=== PATIENT | female | born 1995 | race Caucasian/White ===

== ENCOUNTER 2016-07-12 02:25 | Inpatient (IN) | payer MEDICAID ==
[2016-07-12] VITALS (52 sets, daily range): BP systolic 93–158; BP diastolic 46–76
[~2016-07-12] VITALS: Ht 144.8 cm; Wt 63.0 kg
--- OUTSIDE RECORDS SUMMARY | 2016-07-12 02:29 | XMS REPORT | Continuity of Care Document ---
Author Author [facility] Organization [facility] Address Unknown Phone Unavailable Allergies Medications Problems Procedures Results Encounters ACCT No. Visit Date/Time Discharge Status Pt. Type Provider Facility Loc./Unit Complaint [id number] 12/23/2014 21:54:09 12/23/2014 23: 59:59 [facility] Outpatient JULITO BUCKLEY [id number] 03/08/2014 11:07:24 03/08/2014 23: 59:59 [facility] Outpatient JULITO BUCKLEY [id number] 11/22/2013 13:23:57 11/22/2013 23: 59:59 [facility] Outpatient JULITO BUCKLEY
[2016-07-12] MEDS ORDERED: PREN1TAB71 PO (03:47)
[2016-07-12 05:11] LABS: BASOPHILS % (AUTO) 0 % (0-10); EOSINOPHILS % (AUTO) 0 % (0-10); LYMPHOCYTES # (AUTO) 1.4 X 10^3 (1.0-4.0); LYMPHOCYTES % (AUTO) 14 % (12-44); MEAN CORPUSCULAR HEMOGLOBIN 32 PG (25-34); MEAN CORPUSCULAR HGB CONC 34 G/DL (32-36); MEAN CORPUSCULAR VOLUME 94 FL (80-99); MEAN PLATELET VOLUME 9.3 FL (7.4-10.4); MONOCYTES # (AUTO) 0.7 X 10^3 (0.0-1.0); MONOCYTES % (AUTO) 7 % (0-12); NEUTROPHILS # (AUTO) 7.5 X 10^3 (1.8-7.8); NEUTROPHILS % (AUTO) 78 % (42-75); PLATELET COUNT 351 10^3/uL (130-400); RED BLOOD COUNT 3.74 10^6/uL (4.35-5.85); RED CELL DISTRIBUTION WIDTH 13.3 % (10.0-14.5); WHITE BLOOD COUNT 9.6 10^3/uL (4.3-11.0)
[2016-07-12 05:28] LABS: ALANINE AMINOTRANSFERASE 9 U/L (0-55); ALBUMIN 3.6 G/DL (3.2-4.5); ANION GAP 12 MMOL/L (5-14); ASPARTATE AMINO TRANSFERASE 13 U/L (5-34); BILIRUBIN,TOTAL 0.1 MG/DL (0.1-1.0); BLOOD UREA NITROGEN 4 MG/DL (7-18); BUN/CREATININE RATIO 8; CALCIUM 8.7 MG/DL (8.5-10.1); CARBON DIOXIDE 18 MMOL/L (21-32); CHLORIDE 111 MMOL/L (98-107); CREATININE SERUM 0.53 MG/DL (0.60-1.30); GFR ESTIMATED > 60; GLUCOSE 94 MG/DL (70-105); POTASSIUM 3.5 MMOL/L (3.6-5.0); SODIUM 141 MMOL/L (135-145); TOTAL PROTEIN 6.1 G/DL (6.4-8.2)
[2016-07-12 06:06] LABS: BILIRUBIN,URINE NEGATIVE (NEGATIVE); KETONES,URINE NEGATIVE (NEGATIVE); LEUKOCYTE ESTERASE ,URINE NEGATIVE (NEGATIVE); NITRITE,URINE NEGATIVE (NEGATIVE); PH,URINE 8 (5-9); PROTEIN,URINE NEGATIVE (NEGATIVE); UROBILINOGEN,URINE NORMAL (NORMAL)
--- NOTE | 2016-07-12 08:29 | History & Physical-OB/GYN ---
History of Present Illness History of Present Illness Reason for visit/HPI No movement since Tuesday. Date of Admission Admitted by Dr. Robertson on 07/12/16 but nothing done. I took over care this am. I consulted on this patient on 07/12/16 08:29 Attending Physician Alex Robertson MD Admitting Physician Asher Greenfield DO Consult PAtient under my obstetrical care. No movement for two days and no hearttones confirmed on admission. Dr. Robertson admitted but nothing done. demise confirmed by US and by exam. Will plan induction today. uncomplicated Allergies and Home Medications Allergies Coded Allergies: No Known Drug Allergies (Unverified , 07/12/16) Home Medications Ibuprofen 600 Mg Tablet, 600 MG PO Q6H, #40 Prescribed by: ASHER GREENFIELD on 07/13/16 0823 Vit/Iron Fumarate/FA 1 Each Tablet, 1 EACH PO DAILY, (Reported) Past Sdsckgh-Xcqllm-Gdsqqr Hx Patient Social History Number of Children: 0 Smoking Status: Never a Smoker Physical Abuse Screen: No Sexual Abuse: No Recent Foreign Travel: No Contact w/other who traveled: No Recent Infectious Disease Expo: No Immunizations Up To Date Date of Influenza Vaccine: Feb 25, 2016 Seasonal Allergies Seasonal Allergies: No Surgeries HX Surgeries: No Respiratory Hx Respiratory Disorders: No Cardiovascular Hx Cardiovascular Disorders: No Neurological Hx Neurological Disorders: No Reproductive System Hx : 1 Genitourinary Hx Genitourinary Disorders: No Gastrointestinal Hx Gastrointestinal Disorders: No Musculoskeletal Hx Musculoskeletal Disorders: No Endocrine Hx Endocrine Disorders: No HEENT HX ENT Disorders: No (no recent infection, no fever) Cancer Hx Cancer: No Psychosocial Hx Psychiatric Problems: No Integumentary HX Skin/Integumentary Disorder: No Blood Transfusions Hx Blood Disorders: No Reviewed Nursing Assessment Reviewed/Agree w Nursing PMH: Yes Family Medical History Significant Family History: No Pertinent Family Hx Constitutional: no symptoms reported EENTM: no symptoms reported Respiratory: no symptoms reported Cardiovascular: see HPI Gastrointestinal: no symptoms reported Genitourinary: no symptoms reported : Yes (26 weeks) Musculoskeletal: no symptoms reported Skin: no symptoms reported Psychiatric/Neurological: No Symptoms Reported All Other Systems Reviewed Negative Unless Noted: Yes Physical Exam Physical Exam Vital Signs Capillary Refill : Labs Microbiology 07/12/16 Urine Culture - Final, Complete 07/13/16 Gram Stain - Final, Complete 07/13/16 Surgical Culture - Final, Complete Lactobacillus Species Enterococcus Species General Appearance: Mild Distress Respiratory: Lungs Clear Cardiovascular: Regular Rate, Rhythm Abdominal: normal bowel sounds, non tender Cervix: Other (cervix closed. ) Uterus: Other (no hearttones) Pelvic Exam: normal external exam Assessment/Plan Assessment and Plan demise at 26 weeks Plan cytotec induction and delivery. Patient and SO to decide about examination of fetus and autopsy. Will do lab evaluation. Cause unknown at this time. ASHER GREENFIELD DO Jul 12, 2016 08:29
[2016-07-12] MEDS ORDERED: LACTATED RINGERS 1,000 ML IV SCH ×3 (08:30→20:16)
--- NOTE | 2016-07-12 08:39 | Diagnostic Imaging Report ---
EXAMINATION: OB ultrasound. INDICATION: Decreased movement. FINDINGS: Unfortunately heart movement is not detected compatible with demise. The growth parameters overall average about 26 weeks and zero days. The placenta is to the right side of the uterus with no placenta previa. The cervix appears closed. IMPRESSION: cardiac activity is not detected compatible with demise. The results were given to the nurse taking of the patient Josh, at 4:10 AM by Tori, the echocardiography technologist performing the exam. Dictated by: Dictated on workstation # [id number]
[2016-07-12 09:37] LABS: BASOPHILS % (AUTO) 0 % (0-10); EOSINOPHILS % (AUTO) 0 % (0-10); LYMPHOCYTES # (AUTO) 1.4 X 10^3 (1.0-4.0); LYMPHOCYTES % (AUTO) 15 % (12-44); MEAN CORPUSCULAR HEMOGLOBIN 32 PG (25-34); MEAN CORPUSCULAR HGB CONC 35 G/DL (32-36); MEAN CORPUSCULAR VOLUME 93 FL (80-99); MEAN PLATELET VOLUME 9.5 FL (7.4-10.4); MONOCYTES # (AUTO) 0.6 X 10^3 (0.0-1.0); MONOCYTES % (AUTO) 6 % (0-12); NEUTROPHILS # (AUTO) 7.5 X 10^3 (1.8-7.8); NEUTROPHILS % (AUTO) 79 % (42-75); PLATELET COUNT 381 10^3/uL (130-400); RED BLOOD COUNT 3.89 10^6/uL (4.35-5.85); RED CELL DISTRIBUTION WIDTH 13.3 % (10.0-14.5); WHITE BLOOD COUNT 9.5 10^3/uL (4.3-11.0)
[2016-07-12 09:56] LABS: ALANINE AMINOTRANSFERASE 12 U/L (0-55); ALBUMIN 3.7 G/DL (3.2-4.5); ANION GAP 12 MMOL/L (5-14); ASPARTATE AMINO TRANSFERASE 14 U/L (5-34); BILIRUBIN,TOTAL 0.1 MG/DL (0.1-1.0); BLOOD UREA NITROGEN 3 MG/DL (7-18); BUN/CREATININE RATIO 5; CALCIUM 9.1 MG/DL (8.5-10.1); CARBON DIOXIDE 17 MMOL/L (21-32); CHLORIDE 111 MMOL/L (98-107); CREATININE SERUM 0.55 MG/DL (0.60-1.30); GFR ESTIMATED > 60; GLUCOSE 93 MG/DL (70-105); POTASSIUM 3.6 MMOL/L (3.6-5.0); SODIUM 140 MMOL/L (135-145); TOTAL PROTEIN 6.4 G/DL (6.4-8.2)
[2016-07-12 10:07] LABS: PROTHROMBIN TIME PATIENT 12.4 SEC (12.2-14.7)
[2016-07-12] MEDS: MISOPROSTOL 200 MCG (CYTOTEC) TABLET PV SCH ×3 (10:44→17:03)
[2016-07-12] MEDS: D5 LR IV SOLUTION 1,000 ML IV SCH ×2 (10:44→18:30)
[2016-07-12] MEDS: morphine INJ 4 MG/ML 1 ML (VIAL/SYRINGE) IVP PRN ×4 (12:08→17:50)
[2016-07-12] MEDS: LORazepam INJ 2 MG/ML (ATIVAN) VIAL IVP PRN ×2 (13:46→17:49)
[2016-07-12] MEDS ORDERED: ONDANSETRON 4 MG/2 ML (SDV) Z0FRAN ONE (16:26)
[2016-07-12] MEDS ORDERED: ACETAMINOPHEN 500 MG TAB (TYLENOL) PO PRN (18:15)
[2016-07-12] MEDS ORDERED: SUFENTA 0.6MCG/ML BUPIVA 0.125 100 ML ONE (18:21)
[2016-07-12] MEDS ORDERED: fentaNYL INJECTION 100 MCG/2 ML AMP ONE (19:46)
[2016-07-12] MEDS ORDERED: BUPIVACAINE 0.25% 30 ML (SENSORCAINE) VIAL ONE (19:46)
[2016-07-12] MEDS ORDERED: LIDOCAINE PF 2% 10 ML (XYLOCAINE) AMP ONE (19:46)
[2016-07-12] MEDS ORDERED: ONDANSETRON 4 MG/2 ML (SDV) Z0FRAN IVP ONE (20:00)
[2016-07-12] MEDS: MISOPROSTOL 200 MCG (CYTOTEC) TABLET PO SCH ×2 (20:24→23:33)
[2016-07-12] MEDS ORDERED: NALOXONE 0.4 MG/ML 1 ML (NARCAN) VIAL IV PRN (20:30)
[2016-07-12] MEDS ORDERED: ONDANSETRON 4 MG/2 ML (SDV) Z0FRAN IV PRN (20:30)
[2016-07-12] MEDS ORDERED: EPIDURAL (SUFENTA 0.6MCG/ML BUPIVA 0.125%) 100 ML BAG EPI PRN (20:30)
[2016-07-12] MEDS ORDERED: diphenhydrAMINE 50 MG/ML INJ (BENADRYL) IV PRN (20:30)
[2016-07-13] VITALS (32 sets, daily range): BP systolic 91–129; BP diastolic 49–82
[2016-07-13] MEDS ORDERED: OXYTOCIN/NORMAL SALINE 500 ML IV ONE (01:48)
[2016-07-13] MEDS: OXYTOCIN/NORMAL SALINE 500 ML IV SCH ×2 (02:30→02:59)
[2016-07-13] MEDS ORDERED: APAP 300 MG/CODEINE 30 MG (TYLENOL #3) TAB PO PRN (02:45)
[2016-07-13] MEDS ORDERED: KETOROLAC 30 MG/ML VIAL IVP SCH (02:45)
[2016-07-13] MEDS ORDERED: MEASLES,MUMPS,RUBELLA 1 EA INJ SQ ONE (02:45)
[2016-07-13] MEDS ORDERED: IBUPROFEN 600 MG (MOTRIN) TAB PO SCH (02:45)
[2016-07-13] MEDS ORDERED: TETANUS,DIPTH,PERTUSS P/F (BOOSTRIX) 0.5 ML VIAL IM ONE (02:45)
--- NOTE | 2016-07-13 02:46 | Operative Report ---
Operative Report Date of Procedure/Surgery Jul 13, 2016 Post-Operative Diagnosis demise at 26 weeks Procedure Performed Name of Procedure: Delivery of demise Description of Procedure Anesthesia Type: EPI Estimated blood loss (mL): 100 Specimen(s) collected fetus, placenta Indications no hearttones confirmed but ultrasound at 26 weeks. Procedure Patient was admitted yesterday with no movement for 2 days. Ultrasound confirmed no hearttones. we began induction with Cytotec as the cervix was closed and not effaced. She received several doses of vaginal Cytotec and then had an epidural placed. We changed the Cytotec to oral to limit vaginal checks as she had a low-grade temperature. The fever was likely due to the prostaglandin effect. I was called at 01 45 a.m. with complaint of increasing pain. The nurse checked her and felt membranes in the vagina. I arrived and the nurse stated that the membranes had ruptured. On my exam there were tissue in the vagina. The ultrasound had been done by a different position and with reported that the baby was vertex however there were seen protruding from the vagina. She was placed in the dorsal lithotomy position due to patient discomfort (it was thought this would take pressure off of her back), and the fetus was delivered in the breech presentation. The cord was doubly clamped and cut. There was some twisting of the cord but no obvious knot in the cord. The cord was doubly clamped and cut and handed off to the awaiting nurse. The placenta was then allowed to deliver spontaneously. And just a few minutes later delivered intact and spontaneous with a small gush of blood of approximately 50- 100 mL. The patient was administered Pitocin and then 800 g of Cytotec per rectum to avoid hemorrhage. There was no obvious anomaly. The head is soft and misshapen but this is likely due to demise and delivery. We will do a gross inspection of the placenta and the fetus and the patient and her significant other will decide on autopsy. Laboratory studies are also pending. Mother was stable in the room. Allergies and Home Medications Allergies Coded Allergies: No Known Drug Allergies (Unverified , 07/12/16) Home Medications Vit/Iron Fumarate/FA 1 Each Tablet 1 EACH PO DAILY (Reported) ASHER GREENFIELD DO Jul 13, 2016 02:46
[2016-07-13 05:38] LABS: BASOPHILS % (AUTO) 0 % (0-10); EOSINOPHILS % (AUTO) 0 % (0-10); LYMPHOCYTES # (AUTO) 1.3 X 10^3 (1.0-4.0); LYMPHOCYTES % (AUTO) 6 % (12-44); MEAN CORPUSCULAR HEMOGLOBIN 32 PG (25-34); MEAN CORPUSCULAR HGB CONC 34 G/DL (32-36); MEAN CORPUSCULAR VOLUME 93 FL (80-99); MEAN PLATELET VOLUME 9.6 FL (7.4-10.4); MONOCYTES # (AUTO) 1.5 X 10^3 (0.0-1.0); MONOCYTES % (AUTO) 7 % (0-12); NEUTROPHILS # (AUTO) 18.8 X 10^3 (1.8-7.8); NEUTROPHILS % (AUTO) 87 % (42-75); PLATELET COUNT 325 10^3/uL (130-400); RED BLOOD COUNT 3.48 10^6/uL (4.35-5.85); WHITE BLOOD COUNT 21.6 10^3/uL (4.3-11.0)
[2016-07-13] MEDS ORDERED: CATHETER FLUSH 10 ML SYR IV SCH (06:00)
--- NOTE | 2016-07-13 08:22 | Progress Note-Standard ---
Standard Progress Note Progress Notes/Assess & Plan Progress/Assessment & Plan Patient is stable. minimal bleeding. She will be discharged to home today Vital Signs 07/13/16 07/13/16 00:52 04:41 Temp 98.4 Pulse 115 Resp 18 B/P 105/52 Pulse Ox 95 O2 Delivery Room Air Laboratory Tests Test 07/12/16 09:19 07/13/16 05:13 Range/Units Activated Partial Thromboplast Time 24 24-35 SEC Alanine Aminotransferase (ALT/SGPT) 12 0-55 U/L Albumin 3.7 3.2-4.5 G/DL Alkaline Phosphatase 81 40-136 U/L Anion Gap 12 5-14 MMOL/L Aspartate Amino Transf (AST/SGOT) 14 5-34 U/L BUN/Creatinine Ratio 5 Basophils # (Auto) 0.0 0.0 0.0-0.1 10^3/uL Basophils (%) (Auto) 0 0 0-10 % Blood Urea Nitrogen 3 L 7-18 MG/DL Calcium Level 9.1 8.5-10.1 MG/DL Carbon Dioxide Level 17 L 21-32 MMOL/L Chloride Level 111 H 98-107 MMOL/L Creatinine 0.55 L 0.60-1.30 MG/DL D-Dimer 0.61 H 0.00-0.49 UG/ML Eosinophils # (Auto) 0.0 0.0 0.0-0.3 10^3/uL Eosinophils (%) (Auto) 0 0 0-10 % Estimat Glomerular Filtration Rate > 60 Fibrinogen 388 221-496 MG/DL Glucose Level 93 70-105 MG/DL Hematocrit 36 32 L 35-52 % Hemoglobin 12.6 11.1 L 11.5-16.0 G/DL INR Comment 1.0 0.8-1.4 Lymphocytes # (Auto) 1.4 1.3 1.0-4.0 X 10^3 Lymphocytes (%) (Auto) 15 6 L 12-44 % Mean Corpuscular Hemoglobin 32 32 25-34 PG Mean Corpuscular Hemoglobin Concent 35 34 32-36 G/DL Mean Corpuscular Volume 93 93 80-99 FL Mean Platelet Volume 9.5 9.6 7.4-10.4 FL Monocytes # (Auto) 0.6 1.5 H 0.0-1.0 X 10^3 Monocytes (%) (Auto) 6 7 0-12 % Neutrophils # (Auto) 7.5 18.8 H 1.8-7.8 X 10^3 Neutrophils (%) (Auto) 79 H 87 H 42-75 % Platelet Count 381 325 130-400 10^3/uL Potassium Level 3.6 3.6-5.0 MMOL/L Prothrombin Time 12.4 12.2-14.7 SEC Red Blood Count 3.89 L 3.48 L 4.35-5.85 10^6/uL Red Cell Distribution Width 13.3 13.0 10.0-14.5 % Sodium Level 140 135-145 MMOL/L Total Bilirubin 0.1 0.1-1.0 MG/DL Total Protein 6.4 6.4-8.2 G/DL White Blood Count 9.5 21.6 H 4.3-11.0 10^3/uL 1. demise at 26 weeks s/p delivery. Will discharge home. Has not decided regarding the autopsy and will discuss with her today. ASHER GREENFIELD DO Jul 13, 2016 08:22
[2016-07-13] MEDS ORDERED: IBUP-1773 PO (08:23)
--- NOTE | 2016-07-13 08:24 | Discharge Inst-Women's Service ---
Discharge Inst-Women's Serv Depart Medication/Instructions New, Converted or Re-Newed RX: RX on Chart Final Diagnosis demise Consults/Follow Up Additional Follow Up: Yes ([address] greenfield) Activity Activity: Activity as Tolerated Driving Instructions: You May Drive NO SMOKING: NO SMOKING Nothing Inside Vagina: No Douching, No [place], No Tampons Diet Discharge Diet: No Restrictions Symptoms to Report to : Swelling Increased, Bleeding Excessive, Fever Over 101 Degrees F, Vaginal Bleeding Increase, Vaginal Discharge Foul For Any Problems or Questions: Contact Your Physician ASHER GREENFIELD DO Jul 13, 2016 08:23
[2016-07-13 16:33] LABS: LUPUS ANTICOAGULANT PTT 29.6 Seconds (24.4-41.7)
[2016-07-14 07:37] LABS: TOXOPLASMOSIS IGM ANTIBODIES 0.28 (0.00-0.89)
[2016-07-14 07:38] LABS: PT REF RML 12.4 SEC (10.5-15.7)
[2016-07-14 07:39] LABS: INR REF RML 0.9 (0.7-1.3); PTT LUPUS 27.7 SEC (20.6-39.2)
[2016-07-14 07:47] LABS: DIL RUSSELL VIPER VENOM SCREEN 0.68 ratio (0.00-1.20)
[2016-07-15 07:48] LABS: IGG PARVOVIRUS ANTIBODY 6.41 (<=0.89)
[2016-07-15 07:49] LABS: IGM PARVOVIRUS ANTIBODY 0.19 (<=0.89)
== END 2016-07-13 14:00 | disposition home or self-care (01) | DRG 775 ==
LOC: WSo 02:25 → LDRP 02:26 → WSo 08:32 → LDRP 08:32
PROVIDERS: ADMIT Obstetrics & Gynecology; ATTEND Obstetrics & Gynecology
PROC: 10E0XZZ Delivery of Products of Conception, External Approach (ICD-10-PCS; principal; 2016-07-13)
PROC: 3E0DXGC Introduction of Other Therapeutic Substance into Mouth and Pharynx, External Approach (ICD-10-PCS; 2016-07-13)
DX: O36.4XX0 Maternal care for intrauterine death, not applicable or unspecified (principal); Z37.1 Single stillbirth; Z3A.26 26 weeks gestation of pregnancy
CPT/HCPCS: 36415; 76815; 80053; 80306; 81000; 85025; 85379; 85384; 85610; 85613; 85705; 85730; 86644; 86645; 86747; 86777; 86778; 87070; 87088; 87205; 88305; 99212

== ENCOUNTER → 2016-09-23 | Outpatient (CLI) | payer OTHER ==
[~2016-09-23] MED LIST: IBUP-1773 PO; PREN1TAB71 PO
== END ==
LOC: LAB 13:38
PROVIDERS: ATTEND Obstetrics & Gynecology
DX: Z34.81 Encounter for supervision of other normal pregnancy, first trimester (principal)
CPT/HCPCS: 36415; 84144; 84702

== ENCOUNTER → 2016-11-05 | Outpatient (CLI) | payer MEDICAID | LOC: LAB 15:50 | PROVIDERS: ATTEND Obstetrics & Gynecology | DX: O03.9 Complete or unspecified spontaneous abortion without complication (principal); Z3A.00 Weeks of gestation of pregnancy not specified | CPT/HCPCS: 36415; 84702 ==

== ENCOUNTER 2016-12-04 08:00 | Emergency (ER) | payer MEDICAID ==
[~2016-12-04] VITALS: Ht 144.8 cm; Wt 47.6 kg
[2016-12-04 08:37] LABS: BASOPHILS # (AUTO) 0.1 10^3/uL (0.0-0.1); BASOPHILS % (AUTO) 1 % (0-10); EOSINOPHILS # (AUTO) 0.1 10^3/uL (0.0-0.3); EOSINOPHILS % (AUTO) 2 % (0-10); LYMPHOCYTES # (AUTO) 1.8 X 10^3 (1.0-4.0); LYMPHOCYTES % (AUTO) 36 % (12-44); MEAN CORPUSCULAR HEMOGLOBIN 29 PG (25-34); MEAN CORPUSCULAR HGB CONC 33 G/DL (32-36); MEAN CORPUSCULAR VOLUME 90 FL (80-99); MEAN PLATELET VOLUME 9.3 FL (7.4-10.4); MONOCYTES # (AUTO) 0.6 X 10^3 (0.0-1.0); MONOCYTES % (AUTO) 11 % (0-12); NEUTROPHILS # (AUTO) 2.5 X 10^3 (1.8-7.8); NEUTROPHILS % (AUTO) 49 % (42-75); PLATELET COUNT 430 10^3/uL (130-400); RED CELL DISTRIBUTION WIDTH 12.3 % (10.0-14.5)
[2016-12-04 08:59] LABS: ALANINE AMINOTRANSFERASE 11 U/L (0-55); ALBUMIN 4.1 GM/DL (3.2-4.5); ANION GAP 7 MMOL/L (5-14); ASPARTATE AMINO TRANSFERASE 13 U/L (5-34); BILIRUBIN,TOTAL 0.2 MG/DL (0.1-1.0); BLOOD UREA NITROGEN 14 MG/DL (7-18); BUN/CREATININE RATIO 22; CALCIUM 8.7 MG/DL (8.5-10.1); CARBON DIOXIDE 20 MMOL/L (21-32); CHLORIDE 111 MMOL/L (98-107); CREATININE SERUM 0.65 MG/DL (0.60-1.30); GFR ESTIMATED > 60; GLUCOSE 87 MG/DL (70-105); POTASSIUM 3.8 MMOL/L (3.6-5.0); SODIUM 138 MMOL/L (135-145); TOTAL PROTEIN 6.7 GM/DL (6.4-8.2)
[2016-12-04 09:32] LABS: BILIRUBIN,URINE NEGATIVE (NEGATIVE); KETONES,URINE NEGATIVE (NEGATIVE); LEUKOCYTE ESTERASE ,URINE 1+ (NEGATIVE); NITRITE,URINE NEGATIVE (NEGATIVE); PH,URINE 6 (5-9); PROTEIN,URINE NEGATIVE (NEGATIVE); UROBILINOGEN,URINE NORMAL (NORMAL)
[2016-12-04] MEDS ORDERED: LIDOCAINE 1% INJ 20 ML (XYLOCAINE) VIAL ONE (10:24)
--- NOTE | 2016-12-04 10:53 | ED Head Injury ---
General Chief Complaint: Head/Cervical Problems Stated Complaint: HEAD INJ Nursing Triage Note: pt reports when she woke up this am she passed out geting out of bed and hit her head on her dresser. pt has lac to top of head but not actively bleeding. pt reprots she has passed out before but not recently. pt reports she is not currently dizzy or light headed. pt reports she woke up right after passing out. Source: patient Exam Limitations: no limitations History of Present Illness Time seen by provider: 10:48 Initial Comments The patient is a 21-year-old white female. She reports that on arising this morning she felt lightheaded and fell forward. She did not lose consciousness. She reported that she her anterior scalp on the corner bedside table. It is noted that she reports she has lost about 25 pounds since June by dieting and exercise. She states that she is currently a weight maintenance phase. Occurred: this morning Severity: mild Location: frontal Method of Injury: direct blow, fell Loss of Consciousness: no loss of consciousness Associated Systoms: Denies Symptoms Allergies and Home Medications Allergies Coded Allergies: No Known Drug Allergies (Unverified , 07/12/16) Home Medications Ibuprofen 600 Mg Tablet, 600 MG PO Q6H, #40 Prescribed by: ASHER GREENFIELD on 07/13/16 0823 Vit/Iron Fumarate/FA 1 Each Tablet, 1 EACH PO DAILY, (Reported) Constitutional: see HPI Eyes: No Symptoms Reported Ears, Nose, Mouth, Throat: no symptoms reported Respiratory: no symptoms reported Cardiovascular: no symptoms reported Gastrointestinal: no symptoms reported Musculoskeletal: no symptoms reported Skin: no symptoms reported Psychiatric/Neurological: No Symptoms Reported Endocrine: No Symptoms Reported Hematologic/Lymphatic: No Symptoms Reported Past Beyrjsn-Lkgylg-Kgdwwl Hx Patient Social History Alcohol Use: Occasionally Uses Recreational Drug Use: No Smoking Status: Never a Smoker Recent Foreign Travel: No Contact w/Someone Who Travel: No Recent Infectious Disease Expo: No Recent Hopitalizations: No Immunizations Up To Date Tetanus Booster (TDap): Less than 5yrs PED Vaccines UTD: No Date of Influenza Vaccine: Feb 25, 2016 Seasonal Allergies Seasonal Allergies: No Surgeries HX Surgeries: No Respiratory Hx Respiratory Disorders: No Cardiovascular Hx Cardiac Disorders: No Neurological Hx Neurological Disorders: No Genitourinary Hx Genitourinary Disorders: No Gastrointestinal Hx Gastrointestinal Disorders: No Musculoskeletal Hx Musculoskeletal Disorders: No Endocrine Hx Endocrine Disorders: No HEENT HX ENT Disorders: No (no recent infection, no fever) Cancer Hx Cancer: No Psychosocial Hx Psychiatric Problems: No Integumentary HX Skin/Integumentary Disorder: No Blood Transfusions Hx Blood Disorders: No Family Medical History Significant Family History: No Pertinent Family Hx Family Medial History: Breast cancer in female 19 MOTHER Physical Exam Vital Signs Vital Sign - Last 12Hours 12/04/16 08:08 Temp 98.0 Pulse 100 Resp 18 B/P (MAP) 124/89 Pulse Ox 98 O2 Delivery Room Air Capillary Refill : Less Than 3 Seconds General Appearance: mild distress HEENT: normal ENT inspection Neck: full range of motion Cardiovascular: normal peripheral pulses, regular rate, rhythm, no edema, no gallop, no JVD, no murmur Respiratory: chest non-tender, lungs clear, normal breath sounds, no respiratory distress, no accessory muscle use Gastrointestinal: normal bowel sounds, non tender, soft, no organomegaly, no pulsatile mass Extremities: normal range of motion, non-tender, normal inspection, no pedal edema, no calf tenderness, normal capillary refill, pelvis stable Psychiatric: alert, oriented x 3 Crainal Nerves: normal hearing, normal speech, PERRL Carol Coma Score Best Eye Response: (4) Open Spontaneously Best Verbal Response: (5) Oriented Best Motor Response: (6) Obeys Commands Progress/Results/Core Measures Results/Orders Lab Results Laboratory Tests Test 12/04/16 08:30 12/04/16 09:20 Range/Units White Blood Count 5.0 4.3-11.0 10^3/uL Red Blood Count 4.40 4.35-5.85 10^6/uL Hemoglobin 12.9 11.5-16.0 G/DL Hematocrit 40 35-52 % Mean Corpuscular Volume 90 80-99 FL Mean Corpuscular Hemoglobin 29 25-34 PG Mean Corpuscular Hemoglobin Concent 33 32-36 G/DL Red Cell Distribution Width 12.3 10.0-14.5 % Platelet Count 430 H 130-400 10^3/uL Mean Platelet Volume 9.3 7.4-10.4 FL Neutrophils (%) (Auto) 49 42-75 % Lymphocytes (%) (Auto) 36 12-44 % Monocytes (%) (Auto) 11 0-12 % Eosinophils (%) (Auto) 2 0-10 % Basophils (%) (Auto) 1 0-10 % Neutrophils # (Auto) 2.5 1.8-7.8 X 10^3 Lymphocytes # (Auto) 1.8 1.0-4.0 X 10^3 Monocytes # (Auto) 0.6 0.0-1.0 X 10^3 Eosinophils # (Auto) 0.1 0.0-0.3 10^3/uL Basophils # (Auto) 0.1 0.0-0.1 10^3/uL Sodium Level 138 135-145 MMOL/L Potassium Level 3.8 3.6-5.0 MMOL/L Chloride Level 111 H 98-107 MMOL/L Carbon Dioxide Level 20 L 21-32 MMOL/L Anion Gap 7 5-14 MMOL/L Blood Urea Nitrogen 14 7-18 MG/DL Creatinine 0.65 0.60-1.30 MG/DL Estimat Glomerular Filtration Rate > 60 BUN/Creatinine Ratio 22 Glucose Level 87 70-105 MG/DL Calcium Level 8.7 8.5-10.1 MG/DL Total Bilirubin 0.2 0.1-1.0 MG/DL Aspartate Amino Transf (AST/SGOT) 13 5-34 U/L Alanine Aminotransferase (ALT/SGPT) 11 0-55 U/L Alkaline Phosphatase 35 L 40-136 U/L Total Protein 6.7 6.4-8.2 GM/DL Albumin 4.1 3.2-4.5 GM/DL Urine Color YELLOW Urine Clarity SLIGHTLY CLOUDY Urine pH 6 5-9 Urine Specific [place] 1.020 1.016-1.022 Urine Protein NEGATIVE NEGATIVE Urine Glucose (UA) NEGATIVE NEGATIVE Urine Ketones NEGATIVE NEGATIVE Urine Nitrite NEGATIVE NEGATIVE Urine Bilirubin NEGATIVE NEGATIVE Urine Urobilinogen NORMAL NORMAL MG/DL Urine Leukocyte Esterase 1+ H NEGATIVE Urine RBC (Auto) 1+ H NEGATIVE Urine RBC NONE /HPF Urine WBC 5-10 H /HPF Urine Crystals NONE /LPF Urine Bacteria MODERATE H /HPF Urine Casts NONE /LPF Urine Mucus LARGE H /LPF Urine Culture Indicated YES My Orders Orders - DESTINEE PUTNAM MD Cbc With Automated Diff (12/04/16 08:18) Comprehensive Metabolic Panel (12/04/16 08:18) Ua Culture If Indicated (12/04/16 08:51) Urine Culture (12/04/16 09:20) Lidocaine 1% Injection (Xylocaine 1% Inj (12/04/16 10:24) Medications Given in ED Current Medications Medications Dose Ordered Sig/Kimberly Route Start Time Stop Time Status Last Admin Dose Admin Lidocaine HCl 20 ml STK-MED ONCE .ROUTE 12/04/16 10:24 12/04/16 10:30 DC 12/04/16 10:44 20 ML Vital Signs/I&O Vital Sign - Last 12Hours 12/04/16 08:08 Temp 98.0 Pulse 100 Resp 18 B/P (MAP) 124/89 Pulse Ox 98 O2 Delivery Room Air Blood Pressure Mean: 101 Departure Communication Progress Notes It is noted that the patient has white cells in the urine suggesting UTI. She reports a minimum of symptoms. There is a 2 cm somewhat jagged superficial laceration midline and aligned with the sagittal suture in the anterior scalp. This was cleansed with Hibiclens. 2 mL of 1 percent Xylocaine were used through a 28-gauge needle for anesthesia. 2 5-0 Prolene sutures were placed. Impression Impression: Primary Impression: laceration scalp Additional Impression: UTI Disposition: 01 HOME, SELF-CARE Condition: Improved Departure-Patient Inst. Decision time for Depature: 10:53 Referrals: NO,LOCAL PHYSICIAN (PCP) Primary Care Physician Add. Discharge Instructions: All discharge instructions reviewed with patient and/or family. Voiced understanding. You may clean the laceration with peroxide and a gauze pad. Do not shampoo for at least 3 days. Return in 7 days for suture removal. An ice pack to the area will serve to reduce swelling and pain. You may use Tylenol or ibuprofen if necessary. Scripts Sulfamethoxazole/Trimethoprim (Bactrim Ds Tablet) 1 Each Tablet 1 EACH PO TWICE A DAY, #6 TAB Prov: DESTINEE PUTNAM MD 12/04/16 DESTINEE PUTNAM MD Dec 04, 2016 10:53
[2016-12-04] MEDS ORDERED: SULF1TAB35 PO (10:56)
[2016-12-04 11:00] VITALS: BP 120/82
== END 2016-12-04 11:00 | disposition home or self-care (01) ==
LOC: EDUNIT# 08:00 → ER 08:01
DX: S01.01XA Laceration without foreign body of scalp, initial encounter (principal); N39.0 Urinary tract infection, site not specified; W22.03XA Walked into furniture, initial encounter
CPT/HCPCS: 12001; 36415; 80053; 81000; 85025; 87088; 87186

== ENCOUNTER 2016-12-13 14:19 | Emergency (ER) | payer MEDICAID ==
[~2016-12-13] VITALS: Ht 144.8 cm; Wt 47.6 kg
[~2016-12-13 14:19] MED LIST changes: +SULF1TAB35 PO
[2016-12-13 14:40] VITALS: BP 100/61
== END 2016-12-13 14:40 | disposition home or self-care (01) ==
LOC: EDUNIT# 14:19 → ER 14:21
DX: S01.91XD Laceration without foreign body of unspecified part of head, subsequent encounter (principal); X58.XXXD Exposure to other specified factors, subsequent encounter

== ENCOUNTER → 2018-01-02 | Outpatient (CLI) | payer MEDICAID ==
--- NOTE | 2018-01-02 16:32 | Diagnostic Imaging Report ---
INDICATION: survey. TECHNIQUE: Multiple real-time grayscale images were obtained over the gravid uterus. COMPARISON: None during this . FINDINGS: A single live intrauterine fetus is seen measuring 19 weeks 1 day with sonographic EDC of 05/27/2018. Fetus is in variable presentation. Amniotic fluid was qualitatively normal. Placenta was anterior and grade 2 with no evidence of previa. heart rate was 165 beats per minute. Cervical length is 4.5 cm. survey demonstrated normal appearing kidneys and stomach and intracranial ventricles and four-chamber heart view. Cord insertion appeared unremarkable. The views of the spine and three-vessel cord and bladder were limited. There was no subchorionic bleed. There is no overt adnexal mass or free fluid. Biometrical measurements are as follows: Biparietal 4.32 cm, age 19 weeks 1 days. Head circumference 16.28 cm, age 19 weeks 1 days. Abdominal circumference 13.7 cm, age 19 weeks 1 days. Femur length 2.95 cm, age 19 weeks 1 days. Sonographic estimate age: 19 weeks 1 days. Sonographic estimated date of delivery: 05/28/2018. Estimated Weight: 274 gm (+/- 40 gm). LMP percentile: 35%. heart rate: 165 beats per minute. number: 1 of 1. IMPRESSION: Single live intrauterine fetus measuring 19 weeks 1 day in size as described above. There is no detectable abnormality although portions of the anatomy including bladder, umbilical cord, and spine were not well-seen on today's study. Consider limited followup as clinically warranted. Dictated by: Dictated on workstation # [id number]
== END ==
LOC: RAD 15:05
PROVIDERS: ATTEND Obstetrics & Gynecology
DX: Z36.89 Encounter for other specified antenatal screening (principal); Z3A.19 19 weeks gestation of pregnancy; Z87.59 Personal history of other complications of pregnancy, childbirth and the puerperium
CPT/HCPCS: 76805

== ENCOUNTER 2018-05-19 22:59 | Inpatient (IN) | payer MEDICAID ==
[~2018-05-19] VITALS: Ht 144.8 cm; Wt 70.8 kg
--- NOTE | 2018-05-19 23:11 | NUR ---
ARLENE CORTEZ presented to unit via wc from ED, accompanied by a lorrie clifford, with c/o srom. ARLENE CORTEZ weighed, gowned, voided, and to bed. EFHM and TOCO applied, VS taken. ARLENE CORTEZ oriented to bed controls, call light, TV, heat, and A/C controls.
[2018-05-19 23:21] VITALS: BP 116/77
[2018-05-19] MEDS ORDERED: AMPICILLIN FOR IV USE 2,000 MG in NS (IVPB) 50 ML IV SCH (23:48)
[2018-05-19] MEDS ORDERED: D5 LR IV SOLUTION 1,000 ML IV ONE (23:50)
[2018-05-19] MEDS ORDERED: NS (IVPB) 50 ML ONE (23:51)
[2018-05-19] MEDS ORDERED: AMPICILLIN 2,000 MG/20 ML (IV USE) ONE (23:51)
[2018-05-20] VITALS (77 sets, daily range): BP systolic 84–143; BP diastolic 50–93
[2018-05-20] MEDS: D5 LR IV SOLUTION 1,000 ML IV SCH ×3 (00:14→15:45)
[2018-05-20 00:40] LABS: BASOPHILS % (AUTO) 0 % (0-10); EOSINOPHILS % (AUTO) 0 % (0-10); HEMATOCRIT 37 % (35-52); HEMOGLOBIN 12.7 G/DL (11.5-16.0); LYMPHOCYTES # (AUTO) 2.1 X 10^3 (1.0-4.0); LYMPHOCYTES % (AUTO) 19 % (12-44); MEAN CORPUSCULAR HEMOGLOBIN 32 PG (25-34); MEAN CORPUSCULAR HGB CONC 34 G/DL (32-36); MEAN CORPUSCULAR VOLUME 93 FL (80-99); MEAN PLATELET VOLUME 9.6 FL (7.4-10.4); MONOCYTES # (AUTO) 0.8 X 10^3 (0.0-1.0); MONOCYTES % (AUTO) 7 % (0-12); NEUTROPHILS % (AUTO) 73 % (42-75); PLATELET COUNT 311 10^3/uL (130-400); RED CELL DISTRIBUTION WIDTH 13.6 % (10.0-14.5); WHITE BLOOD COUNT 10.9 10^3/uL (4.3-11.0)
[2018-05-20] MEDS ORDERED: BUPIVACAINE 0.25% 30 ML (SENSORCAINE) VIAL ONE (01:28)
[2018-05-20] MEDS ORDERED: LIDOCAINE PF 2% 5 ML (XYLOCAINE) VIAL ONE (01:28)
[2018-05-20] MEDS ORDERED: fentaNYL INJECTION 100 MCG/2 ML AMP ONE (01:28)
[2018-05-20] MEDS ORDERED: LACTATED RINGERS 1,000 ML IV ONE ×2 (02:23)
[2018-05-20] MEDS ORDERED: EPIDURAL (SUFENTA 0.6MCG/ML BUPIVA 0.125%) 100 ML BAG EPI PRN (02:30)
[2018-05-20] MEDS ORDERED: ONDANSETRON 4 MG/2 ML (SDV) Z0FRAN IV PRN (02:30)
[2018-05-20] MEDS ORDERED: NALOXONE 0.4 MG/ML 1 ML (NARCAN) VIAL IV PRN (02:30)
[2018-05-20] MEDS: AMPICILLIN FOR IV USE 1,000 MG in NS (IVPB) 50 ML IV SCH ×3 (04:32→12:08)
[2018-05-20] MEDS ORDERED: CATHETER FLUSH 10 ML SYR IV SCH ×2 (06:00→22:00)
--- NOTE | 2018-05-20 07:24 | NUR ---
THIS RN INTRODUCES SELF TO PT AND FAMILY. PHYSICAL ASSESSMENT COMPLETE BY THIS RN. PT DENIES NEEDS AT THIS TIME. CALL LIGHT WITHIN REACH.
--- NOTE | 2018-05-20 09:15 | NUR ---
Dr Rivera a bedside for evaluation and SVE. 6cm per Dr Rivera exam. Orders received to start pitocin. Dr Rivera aware of variables and has reviewed FHT strip.
[2018-05-20] MEDS ORDERED: OXYTOCIN/NORMAL SALINE 500 ML IV SCH ×2 (09:35→17:27)
[2018-05-20] MEDS ORDERED: OXYTOCIN/NORMAL SALINE 500 ML IV ONE (09:37)
[2018-05-20] MEDS ORDERED: diphenhydrAMINE 50 MG/ML INJ (BENADRYL) IVP NR (11:45)
--- NOTE | 2018-05-20 13:50 | NUR ---
DR GREENFIELD CALLED BY THIS RN FOR UPDATED PT REPORT AND TO DISCUSS PLAN OF CARE. SVE BY THIS RN . CERVIX FELT SOFTER WITH THIS EXAM. FHT STRIP HAVING EARLIES WITH OCCASIONAL VARIABLES. UC Q2M. MODERATE-STRONG BY PALPATION. PITOCIN RATE IS AT 20 MILLIUNITS/HR. DR GREENFIELD SAID TO CONTINUE REPOSITIONING AND RECHECK CERVIX IN 1 HOUR BEFORE TURNING UP PITOCIN BEYOND 20.
--- NOTE | 2018-05-20 15:30 | NUR ---
DR GREENFIELD CALLED BY THIS RN WITH UPDATED PT REPORT. SVE /+1. TEMPERATURE 100.2. SROM SINCE [address] GREENFIELD ORDERED TO GIVE CLINDAMYCIN 900 NOW.
[2018-05-20] MEDS ORDERED: CLINDAMYCIN 900 MG/50 ML IVPB 50 ML IV NR (15:45)
[2018-05-20] MEDS ORDERED: LIDOCAINE/EPI 2% 1:200,00 (XYLOCAINE) 10 ML VIAL ONE (16:22)
--- NOTE | 2018-05-20 17:02 | NUR ---
dr willoughby at bedside for delivery
[2018-05-20] MEDS ORDERED: MEASLES,MUMPS,RUBELLA 1 EA INJ SQ ONE (17:30)
[2018-05-20] MEDS ORDERED: WITCH HAZEL(TUCKS) 40 EA JAR TOP PRN (17:30)
[2018-05-20] MEDS ORDERED: ACETAMINOPHEN 500 MG TAB (TYLENOL) PO PRN (17:30)
[2018-05-20] MEDS ORDERED: BENZOCAINE/MENTHOL (DERMOPLAST) 56 ML CAN TP PRN (17:30)
[2018-05-20] MEDS ORDERED: TETANUS,DIPTH,PERTUSS P/F (BOOSTRIX) 0.5 ML VIAL IM ONE (17:30)
[2018-05-20] MEDS ORDERED: DIBUCAINE (NUPERCAINAL) 1% OINT 30 GM TOP PRN (17:30)
--- NOTE | 2018-05-20 17:30 | NUR ---
1634: PT BEGINS PUSHING WITH COACHING AT THIS TIME. 2 RNS AND MEDICAL STUDENT AT BEDSIDE. 1701: DR GREENFIELD ARRIVES AT BEDSIDE FOR DELIVERY 1703: HEAD 1704: SPONTANEOUS VAGINAL DELIVERY OF 39WK FEMALE BY DR GREENFIELD 1707: CORD CLAMPED AND CUT BY DR GREENFIELD 1711: SPONTANEOUS DELIVERY OF INTACT PLACENTA 1730: RECOVERY PERIOD BEGINS AT THIS TIME. FUNDUS FIRM, MIDLINE, LEVEL WITH UMBILICUS, LIGHT BLEEDING. PT DENIES NEEDS AT THIS TIME. CALL LIGHT WITHIN REACH. FAMILY AT BEDSIDE. 1745:FUNDUS FIRM, MIDLINE, LEVEL WITH UMBILICUS, LIGHT BLEEDING. PT DENIES NEEDS AT THIS TIME. PT ATTEMPTING TO BREASTFEED. Kimberlyn WISEMAN RN AT BEDSIDE ASSISTING WITH . CALL LIGHT WITHIN REACH. FAMILY AT BEDSIDE. 1800:FUNDUS FIRM, MIDLINE, LEVEL WITH UMBILICUS, LIGHT BLEEDING. PT DENIES NEEDS AT THIS TIME. ICE PACK IN PLACE. PT . CALL LIGHT WITHIN REACH. FAMILY AT BEDSIDE. 1815:FUNDUS FIRM, MIDLINE, LEVEL WITH UMBILICUS, LIGHT BLEEDING. PT DENIES NEEDS AT THIS TIME. CALL LIGHT WITHIN REACH. FAMILY & VISITORS AT BEDSIDE. 1830:FUNDUS FIRM, MIDLINE, LEVEL WITH UMBILICUS, LIGHT BLEEDING. PT DENIES NEEDS AT THIS TIME. CALL LIGHT WITHIN REACH. 1HR RECOVERY PERIOD ENDS AT THIS TIME. FAMILY & VISITORS AT BEDSIDE. MOTRIN GIVEN. THIS RN WILL HOLD ON PERICARE UNTIL VISITORS LEAVE. PT STILL UNABLE TO LIFT LEFT LEG OFF OF BED.
--- NOTE | 2018-05-20 17:35 | OB Labor & Delivery Record ---
Vag Delivery Note Vag Delivery Note Date of Delivery: 05/20/18 Preoperative Diagnosis: Angelica Mathis is a 22 /Para 2/0 ,Gestational Age 39 weeks, presented with spontaneous rupture of membranes, history of IUFD, GBS positive, maternal fever, prolonged rupture Postoperative Diagnosis: Same Surgeon: ASHER GREENFIELD Anesthesia:epidural Delivery Type: spontaneous Findings: Viable female , apgars 8/9, weight 6#3oz Lacerations: 1st degree Intact placenta with 3 vessel cord. Double nuchal cord reduced during delivery, no body cord or shoulder dystocia Estimated Blood Loss: 500 ml Complications: None Condition: Stable Description of Procedure: The patient is a 22 /Para 2/0 ,Gestational Age 39 weeks, history of IUFD, maternal fever, prolonged rupture. She was admitted and informed consent was obtained. Her labor course was remarkable for SROM prior to admission, augmentation with Pitocin, maternal fever developed during labor (received 4 doses of ampicillin) and gave clindamycin prior to delivery, did not receive the gentamicin as she delivered prior to dosing. She progressed to complete dilatation and began to push. She was then set up for delivery. The 's head was delivered atraumatically in the OA position. The shoulders and remainder of the infant's body were then delivered without difficulty. Upon delivery, the head was held below the level of the perineum and the mouth and nares were bulb suctioned. The cord was doubly clamped and cut and the was handed off to the pediatric staff. An intact placenta with 3-vessel cord delivered via Artie and there was found to be minimal bleeding.~ Vigorous fundal massage was performed and the fundus was found to be firm. IV oxytocin was given. Examination of the vagina and perineum revealed a 1st degree laceration repaired in the usual fashion with 3-0 vicryl suture. Following the repair, sponge, instrument and needle counts were correct. Mom and baby were both in stable condition in the labor suite. Vitals - Labs Vital Signs - I&O Vital Signs Date Time Temp Pulse Resp B/P (MAP) Pulse Ox O2 Delivery O2 Flow Rate FiO2 05/20/18 15:45 99 111/68 (82) Room Air 05/20/18 15:30 105 118/71 (87) Room Air 05/20/18 15:15 100.2 99 18 114/70 (85) Room Air 05/20/18 15:00 88 113/55 (74) Room Air 05/20/18 14:45 94 111/59 (76) Room Air 05/20/18 14:30 93 18 102/59 (73) Room Air 05/20/18 14:15 88 114/69 (84) Room Air 05/20/18 14:00 83 111/63 (79) Room Air 05/20/18 13:45 99.5 96 118/71 (87) Room Air 05/20/18 13:30 87 16 108/52 (70) Room Air 05/20/18 13:15 99 112/57 (75) Room Air 05/20/18 13:00 99.8 83 109/57 (74) Room Air 05/20/18 12:45 91 89/51 (64) Room Air 05/20/18 12:30 76 97/52 (67) Room Air 05/20/18 12:15 88 107/62 (77) Room Air 05/20/18 12:00 95 108/61 (77) Room Air 05/20/18 11:45 99.0 103 16 107/56 (73) Room Air 05/20/18 11:30 108 104/60 (75) Room Air 05/20/18 11:15 75 96/56 (69) Room Air 05/20/18 11:00 91 106/57 (73) Room Air 05/20/18 10:45 81 97/54 (68) Room Air 05/20/18 10:30 81 98/56 (70) Room Air 05/20/18 10:15 111 16 103/59 (74) Room Air 05/20/18 10:00 100 109/60 (76) Room Air 05/20/18 09:45 103 110/61 (77) Room Air 05/20/18 09:30 99.1 134 16 117/56 (76) Room Air 05/20/18 09:15 101 115/61 (79) Room Air 05/20/18 09:00 100 116/63 (80) Room Air 05/20/18 08:45 108 127/69 (88) Room Air 05/20/18 08:30 109 16 113/58 (76) Room Air 05/20/18 08:15 83 101/58 (72) 98 Room Air 05/20/18 08:00 101 104/54 (71) 99 Room Air 05/20/18 07:45 106 122/57 (78) 98 Room Air 05/20/18 07:30 90 104/58 (73) 97 Room Air 05/20/18 07:15 99.1 83 16 104/55 (71) 96 Room Air 05/20/18 07:00 93 18 104/60 (75) 97 Room Air 05/20/18 06:50 93 18 115/69 (84) 97 Room Air 05/20/18 06:36 91 18 103/59 (74) 96 Room Air 05/20/18 06:18 107 18 102/55 (71) 96 Room Air 05/20/18 06:04 90 18 105/56 (72) 96 Room Air 05/20/18 05:49 101 18 107/54 (71) 98 Room Air 05/20/18 05:32 93 18 100/58 (72) 96 Room Air 05/20/18 05:18 89 18 108/56 (73) 98 Room Air 05/20/18 05:04 93 18 103/56 (72) 98 Room Air 05/20/18 04:48 91 18 104/56 (72) 97 Room Air 05/20/18 04:33 100 18 100/59 (73) 97 Room Air 05/20/18 04:20 97.8 82 18 108/59 (75) 97 Room Air 05/20/18 04:06 90 18 101/57 (72) 98 Room Air 05/20/18 03:50 83 18 110/54 (72) 98 Room Air 05/20/18 03:33 93 18 97/50 (66) 97 Room Air 05/20/18 03:20 90 18 109/55 (73) 99 Room Air 05/20/18 03:05 106 18 112/62 (79) 99 Room Air 05/20/18 02:50 112 18 109/61 (77) 99 Room Air 05/20/18 02:35 99 18 101/56 (71) 100 Room Air 05/20/18 02:16 90 18 106/56 (73) 99 Room Air 05/20/18 02:10 115 18 91/53 (66) 98 Room Air 05/20/18 02:06 116 18 101/55 (70) 98 Room Air 05/20/18 02:01 105 18 112/55 (74) 98 Room Air 05/20/18 01:57 87 18 104/57 (73) 98 Room Air 05/20/18 01:53 97 18 113/64 (80) 97 Room Air 05/20/18 01:45 113 18 134/59 (84) 98 Room Air 05/20/18 01:41 116 18 130/76 (94) 98 Room Air 05/20/18 01:10 110 18 99/59 (72) 05/19/18 23:21 98.2 117 18 116/77 (90) I & O 05/20/18 07:00 Intake Total 2110 ml Balance 2110 ml Labs Laboratory Tests 05/20/18 00:30: White Blood Count 10.9, Red Blood Count 4.00L, Hemoglobin 12.7, Hematocrit 37, Mean Corpuscular Volume 93, Mean Corpuscular Hemoglobin 32, Mean Corpuscular Hemoglobin Concent 34, Red Cell Distribution Width 13.6, Platelet Count 311, Mean Platelet Volume 9.6, Neutrophils (%) (Auto) 73, Lymphocytes (%) (Auto) 19, Monocytes (%) (Auto) 7, Eosinophils (%) (Auto) 0, Basophils (%) (Auto) 0, Neutrophils # (Auto) 8.0H, Lymphocytes # (Auto) 2.1, Monocytes # (Auto) 0.8, Eosinophils # (Auto) 0.0, Basophils # (Auto) 0.0 ASHER GREENFIELD DO May 20, 2018 17:35
[2018-05-20] MEDS ORDERED: BENZOCAINE/MENTHOL (DERMOPLAST) 56 ML CAN TP ONE (18:12)
[2018-05-20] MEDS ORDERED: WITCH HAZEL(TUCKS) 40 EA JAR ONE (18:12)
[2018-05-20] MEDS ORDERED: IBUPROFEN 600 MG (MOTRIN) TAB PO ONE (18:12)
[2018-05-20] MEDS: IBUPROFEN 600 MG (MOTRIN) TAB PO SCH (18:30)
--- NOTE | 2018-05-20 19:15 | NUR ---
REPORT GIVEN TO ALBERTA CASIANO
--- NOTE | 2018-05-20 19:56 | NUR ---
FFU/2, epidural attempted to be removed per this RN with no success, OP site applied over catheter insertion site, will retry removal.
--- NOTE | 2018-05-20 20:40 | NUR ---
Epidural removed at this time. Patient ambulated with stand by assistance to bathroom. Void achieved. Amna care reviewed with patient. Patient verbalized understanding.
--- NOTE | 2018-05-20 20:45 | NUR ---
Patient moved to room 309 via wheelchair accompanied by s/o and in crib. Oriented to room and bedcontrols. Will continue to monitor.
[2018-05-20] MEDS ORDERED: CLINDAMYCIN 900 MG/50 ML IVPB 50 ML IV ONE (21:30)
[2018-05-21] VITALS: BP 90/57
[2018-05-21 04:30] VITALS: BP 90/54
[2018-05-21] MEDS: IBUPROFEN 600 MG (MOTRIN) TAB PO SCH ×5 (05:45→23:22)
[2018-05-21 06:05] LABS: BASOPHILS % (AUTO) 0 % (0-10); EOSINOPHILS # (AUTO) 0.1 10^3/uL (0.0-0.3); EOSINOPHILS % (AUTO) 1 % (0-10); HEMATOCRIT 30 % (35-52); LYMPHOCYTES # (AUTO) 2.2 X 10^3 (1.0-4.0); LYMPHOCYTES % (AUTO) 12 % (12-44); MEAN CORPUSCULAR HEMOGLOBIN 32 PG (25-34); MEAN CORPUSCULAR HGB CONC 33 G/DL (32-36); MEAN CORPUSCULAR VOLUME 95 FL (80-99); MEAN PLATELET VOLUME 9.7 FL (7.4-10.4); MONOCYTES % (AUTO) 6 % (0-12); NEUTROPHILS # (AUTO) 14.3 X 10^3 (1.8-7.8); NEUTROPHILS % (AUTO) 81 % (42-75); PLATELET COUNT 249 10^3/uL (130-400); RED BLOOD COUNT 3.14 10^6/uL (4.35-5.85); RED CELL DISTRIBUTION WIDTH 13.8 % (10.0-14.5); WHITE BLOOD COUNT 17.6 10^3/uL (4.3-11.0)
[2018-05-21 07:05] LABS: LYMPHOCYTES % (MANUAL) 12 %; MONOCYTES % (MANUAL) 7 %; NEUTROPHILS % (MANUAL) 81 %
[2018-05-21 08:00] VITALS: BP 100/53
--- NOTE | 2018-05-21 08:00 | NUR ---
Assessment completed at bedside. VSS. No questions or concerns voiced by pt. at this time. Call light within reach. Will continue to monitor.
[2018-05-21] MEDS: DOCUSATE SODIUM 100 MG (COLACE) CAP PO SCH ×2 (08:06)
[2018-05-21] MEDS: FERROUS SULF 325 MG (IRON) TAB PO SCH (08:06)
[2018-05-21] MEDS: PRENATAL VITAMIN 1 EA TAB PO SCH (08:07)
[2018-05-21] MEDS ORDERED: DOCUSATE CALCIUM 240 MG (SURFAK) CAP PO SCH (09:00)
--- NOTE | 2018-05-21 10:46 | History & Physical-OB ---
OB - Chief Complaint & HPI Date/Time Date of Admission: Date of Admission: May 19, 2018 at 23:40 Date seen by a Provider: May 21, 2018 Time Seen by a Provider: 09:00 Chief Complaint/History OB-Reason for Admission/Chief: Rupture of Membranes Hx : 2 Hx Para: 0 Expected Date of Delivery: May 27, 2018 Gestational Age in Weeks: 39 Gestational Age in Days: 0 Other e previously dictated history and physical from office Allergies and Home Medications Allergies Coded Allergies: No Known Drug Allergies (Unverified , 07/12/16) Home Medications Acetaminophen 500 Mg Tablet, 1,000 MG PO Q8H PRN for PAIN-MILD Prescribed by: ASHER GREENFIELD on 05/22/18934 Ibuprofen 600 Mg Tablet, 600 MG PO Q6H Prescribed by: ASHER GREENFIELD on 05/22/18 0935 Vit/Iron Fumarate/FA 1 Each Tablet, 1 EACH PO DAILY, (Reported) Patient Home Medication List Home Medication List Reviewed: No OB - History Delivery History Hx Blood Disorders: No Adverse Rxn to Tranfusion: No Patient Past Medical History see previous Social History/Family History Recent Infectious Disease Expo: No Alcohol Use: Denies Use Recreational Drug Use: No Immunizations Hepatitis A: No Hepatitis B: No Tetanus Booster (TDap): Less than 5yrs Date of Influenza Vaccine: Jan 24, 2018 OB - Admission Exam Physical Exam Vitals: Vital Signs 05/21/18 08:00 Temp 97.4 Pulse 87 Resp 16 B/P (MAP) 100/53 (69) Pulse Ox 98 O2 Delivery Room Air Labs Laboratory Tests Test 05/21/18 05:37 Range/Units White Blood Count 17.6 H 4.3-11.0 10^3/uL Red Blood Count 3.14 L 4.35-5.85 10^6/uL Hemoglobin 10.0 #L 11.5-16.0 G/DL Hematocrit 30 L 35-52 % Mean Corpuscular Volume 95 80-99 FL Mean Corpuscular Hemoglobin 32 25-34 PG Mean Corpuscular Hemoglobin Concent 33 32-36 G/DL Red Cell Distribution Width 13.8 10.0-14.5 % Platelet Count 249 130-400 10^3/uL Mean Platelet Volume 9.7 7.4-10.4 FL Neutrophils (%) (Auto) 81 H 42-75 % Lymphocytes (%) (Auto) 12 12-44 % Monocytes (%) (Auto) 6 0-12 % Eosinophils (%) (Auto) 1 0-10 % Basophils (%) (Auto) 0 0-10 % Neutrophils # (Auto) 14.3 H 1.8-7.8 X 10^3 Lymphocytes # (Auto) 2.2 1.0-4.0 X 10^3 Monocytes # (Auto) 1.0 0.0-1.0 X 10^3 Eosinophils # (Auto) 0.1 0.0-0.3 10^3/uL Basophils # (Auto) 0.0 0.0-0.1 10^3/uL Neutrophils % (Manual) 81 % Lymphocytes % (Manual) 12 % Monocytes % (Manual) 7 % OB - Assessment/Plan/Diagnosis Assessment Admission Dx SROM Admission Status: Inpatient Order (span 2 midnights) Reason for Inpatient Admission: ASHER Fowler DO May 21, 2018 10:46
--- NOTE | 2018-05-21 10:46 | Postpartum Progress Note ---
Note Note Day # 1 s/p Subjective: Patient is without complaints. Ambulating, voiding. Tolerating a regular diet without nausea or vomiting. Normal lochia. Pain is well controlled with oral pain medications. breast feeding. Objective: BP 100/74 T 97.4 P 73 Hgb 10.0 Physical Exam: General - Alert and oriented, no apparent distress Abdomen - Soft, appropriately tender to palpation, non-distended, fundus firm at umbilicus Extremities - no edema, negative Wolfgang's bilaterally Assessment: 1. post- day # 1, status post spontaneous vaginal delivery. Recovering well, hemodynamically stable Plan: Routine care. Encourage breast feeding. Encourage ambulation. Ferrous sulfate supplementation. Plan for discharge Vitals - Labs Vital Signs - I&O Vital Signs Date Time Temp Pulse Resp B/P (MAP) Pulse Ox O2 Delivery O2 Flow Rate FiO2 05/21/18 08:00 97.4 87 16 100/53 (69) 98 Room Air 05/21/18 04:30 97.9 76 18 90/54 (66) 99 Room Air 05/21/18 00:00 98.2 78 18 90/57 (68) 98 Room Air 05/20/18 19:57 100 18 100/50 (67) Room Air 05/20/18 19:56 99.2 18 Room Air 05/20/18 19:42 100 18 110/58 (75) Room Air 05/20/18 19:28 108 18 105/62 (76) Room Air 05/20/18 19:13 113 18 84/64 (71) Room Air 05/20/18 18:30 100.1 122 116/66 (83) Room Air 05/20/18 18:00 109 109/64 (79) Room Air 05/20/18 17:40 115 105/69 (81) Room Air 05/20/18 17:30 123 105/66 (79) Room Air 05/20/18 17:15 100.5 116 18 113/54 (73) Room Air 05/20/18 17:00 126 127/62 (83) Room Air 05/20/18 16:45 144 143/65 (91) Room Air 05/20/18 16:30 129 125/93 (104) Room Air 05/20/18 16:15 96 18 115/57 (76) Room Air 05/20/18 16:00 97 123/62 (82) Room Air 05/20/18 15:45 99 111/68 (82) Room Air 05/20/18 15:30 105 118/71 (87) Room Air 05/20/18 15:15 100.2 99 18 114/70 (85) Room Air 05/20/18 15:00 88 113/55 (74) Room Air 05/20/18 14:45 94 111/59 (76) Room Air 05/20/18 14:30 93 18 102/59 (73) Room Air 05/20/18 14:15 88 114/69 (84) Room Air 05/20/18 14:00 83 111/63 (79) Room Air 05/20/18 13:45 99.5 96 118/71 (87) Room Air 05/20/18 13:30 87 16 108/52 (70) Room Air 05/20/18 13:15 99 112/57 (75) Room Air 05/20/18 13:00 99.8 83 109/57 (74) Room Air 05/20/18 12:45 91 89/51 (64) Room Air 05/20/18 12:30 76 97/52 (67) Room Air 05/20/18 12:15 88 107/62 (77) Room Air 05/20/18 12:00 95 108/61 (77) Room Air 05/20/18 11:45 99.0 103 16 107/56 (73) Room Air 05/20/18 11:30 108 104/60 (75) Room Air 05/20/18 11:15 75 96/56 (69) Room Air 05/20/18 11:00 91 106/57 (73) Room Air I & O 05/21/18 07:00 Intake Total 2570 ml Output Total 900 ml Balance 1670 ml Labs Laboratory Tests 05/21/18 05:37: White Blood Count 17.6H, Red Blood Count 3.14L, Hemoglobin 10.0#L, Hematocrit 30L, Mean Corpuscular Volume 95, Mean Corpuscular Hemoglobin 32, Mean Corpuscular Hemoglobin Concent 33, Red Cell Distribution Width 13.8, Platelet Count 249, Mean Platelet Volume 9.7, Neutrophils (%) (Auto) 81H, Lymphocytes (% ) (Auto) 12, Monocytes (%) (Auto) 6, Eosinophils (%) (Auto) 1, Basophils (%) ( Auto) 0, Neutrophils # (Auto) 14.3H, Lymphocytes # (Auto) 2.2, Monocytes # (Auto ) 1.0, Eosinophils # (Auto) 0.1, Basophils # (Auto) 0.0, Neutrophils % (Manual) 81, Lymphocytes % (Manual) 12, Monocytes % (Manual) 7 ASHER GREENFIELD DO May 21, 2018 10:46
[2018-05-21 11:46] VITALS: BP 100/69
--- NOTE | 2018-05-21 12:34 | NUR ---
Dr. Rivera here to discuss POC with pt.
[2018-05-21 17:50] VITALS: BP 93/58
--- NOTE | 2018-05-21 20:06 | Anesthesia-Regional Post-Op ---
Regional Patient Condition Mental Status: Alert, Oriented x3 Circulation: Same as Pre-Op Headache: Absent Sensation: Full Recovery Motor Block: Absent Post Op Complications Complications None Follow Up Care/Instructions Patient Instructions None needed. Anesthesia/Patient Condition Patient is doing well, no complaints, stable vital signs, no apparent adverse anesthesia problems. No complications reported per nursing. SANDRA FLANAGAN CRNA May 21, 2018 20:06
--- NOTE | 2018-05-21 21:00 | NUR ---
pt resting in bed. assessment completed. pt denies any needs at this time. s/o at bedside.
[2018-05-21 23:23] VITALS: BP 92/53
[2018-05-22] MEDS: IBUPROFEN 600 MG (MOTRIN) TAB PO SCH ×2 (05:51→12:30)
[2018-05-22 05:52] VITALS: BP 97/61
--- NOTE | 2018-05-22 09:00 | NUR ---
Dr Rivera here to see pt.
--- NOTE | 2018-05-22 09:17 | Postpartum Progress Note ---
Note Note Day # 2 s/p Subjective: Patient is without complaints. Ambulating, voiding. Tolerating a regular diet without nausea or vomiting. Normal lochia. Pain is well controlled with oral pain medications. breast feeding. Objective: 05/21/18 05/22/18 23:23 05:52 Temp 98.3 98.1 Pulse 90 63 Resp 16 16 B/P (MAP) 92/53 (66) 97/61 (73) Pulse Ox 97 97 O2 Delivery Room Air Room Air Physical Exam: General - Alert and oriented, no apparent distress Abdomen - Soft, appropriately tender to palpation, non-distended, fundus firm at umbilicus Extremities - no edema, negative Wolfgang's bilaterally Assessment: 1. post- day # 1, status post spontaneous vaginal delivery. Recovering well, hemodynamically stable Plan: Routine care. Encourage breast feeding. Encourage ambulation. Ferrous sulfate supplementation. Plan for discharge to parent room Vitals - Labs Vital Signs - I&O Vital Signs Date Time Temp Pulse Resp B/P (MAP) Pulse Ox O2 Delivery O2 Flow Rate FiO2 05/22/18 05:52 98.1 63 16 97/61 (73) 97 Room Air 05/21/18 23:23 98.3 90 16 92/53 (66) 97 Room Air 05/21/18 17:50 97.9 84 16 93/58 (70) 97 Room Air 05/21/18 11:46 97.3 93 16 100/69 (79) 97 Room Air ASHER GREENFIELD DO May 22, 2018 09:16
[2018-05-22] MEDS ORDERED: ACET-77 PO (09:35)
[2018-05-22] MEDS ORDERED: IBUP-844 PO (09:35)
--- NOTE | 2018-05-22 09:36 | Discharge Inst-Women's Service ---
Discharge Inst-Women's Serv Depart Medication/Instructions New, Converted or Re-Newed RX: RX on Chart Final Diagnosis vaginal delivery Consults/Follow Up Additional Follow Up: Yes Activity Activity: Activity as Tolerated Driving Instructions: You May Drive NO SMOKING: NO SMOKING Nothing Inside Vagina: No Douching, No [place], No Tampons Diet Discharge Diet: No Restrictions Symptoms to Report to : Swelling Increased, Bleeding Excessive, Pain Increased, Fever Over 101 Degrees F, Vaginal Bleeding Increase, Cramps in Feet or Legs, Vaginal Discharge Foul For Any Problems or Questions: Contact Your Physician ASHER GREENFIELD DO May 22, 2018 09:36
[2018-05-22 10:19] VITALS: BP 105/64
[2018-05-22] MEDS: PRENATAL VITAMIN 1 EA TAB PO SCH (10:20)
[2018-05-22] MEDS: DOCUSATE SODIUM 100 MG (COLACE) CAP PO SCH (10:20)
[2018-05-22] MEDS: FERROUS SULF 325 MG (IRON) TAB PO SCH (10:20)
--- NOTE | 2018-05-22 15:35 | NUR ---
DISCHARGE PAPERS PROVIDED AND REVIEWED WITH PT, PT VERBALIZES UNDERSTANDING AND DENIES ANY QUESTIONS AT THIS TIME. PAPER SIGNED. FOLLOW UP APPOINTMENT CARD ALSO PLACED INTO DISCHARGE FOLDER. PT WILL BE DISCHARGED TO ROOMING IN STATUS TO BE WITH .
--- NOTE | 2018-05-22 15:45 | NUR ---
PT DISCHARGED FROM -[facility] TO [facility] MOM STATUS.
--- NOTE | 2018-06-07 13:08 | Discharge Summary ---
Diagnosis/Chief Complaint Date of Admission May 19, 2018 at 23:40 Date of Discharge May 22, 2018 at 15:45 Discharge Date: May 22, 2018 Admission Diagnosis Admission Diagnosis spontaneous labor history of IUGR GBS positive Discharge Diagnosis maternal fever prolonged rupture of membranes Reason Hospital Visit 22 /Para 2/0 ,Gestational Age 39 weeks, presented with spontaneous rupture of membranes, history of IUFD, GBS positive, maternal fever, prolonged rupture Discharge Summary Procedures: vaginal delivery epidural Discharge Physical Examination Allergies: Coded Allergies: No Known Drug Allergies (Unverified , 07/12/16) General Appearance: Alert Respiratory: Clear to Auscultation, Normal Air Movement Cardiovascular: Regular Rate, Normal S1, Normal S2 Hospital Course Was the Problem List Reviewed?: Yes PAtient was admitted with spontaneous rupture of membranes. she was scheduled for induction tomorrow. She has a history of previous IUFD so was scheduled for induction of labor. She is GBS positive and antibiotic prophylaxis was started. She was admitted and informed consent was obtained. Her labor course was remarkable for SROM prior to admission, augmentation with Pitocin, maternal fever developed during labor (received 4 doses of ampicillin) and gave clindamycin prior to delivery, did not receive the gentamicin as she delivered prior to dosing. Delivery was complicated by double nuchal cord and 1st degree laceration. She was admitted for post management. post hemoglobin was 10.0 Discussion & Recommendations see above post course was uncomplicated Discharge Condition at discharge stable Instructions to patient/family Please see electronic discharge instructions given to patient. Discharge Medications Reviewed and agree with Discharge Medication list on patient's Discharge Instruction sheet Clinical Quality Measures DVT/VTE Risk/Contraindication: Risk Factor Score Per Nursin RFS Level Per Nursing on Admit: 1=Low/No VTE PPX ASHER GREENFIELD DO Jun 07, 2018 13:08
== END 2018-05-22 15:45 | disposition home or self-care (01) | DRG 806 ==
LOC: WSo 22:59 → LDRP 23:04 → WSo 23:38 → LDRP 23:40
PROVIDERS: ADMIT Obstetrics & Gynecology; ATTEND Obstetrics & Gynecology
PROC: 10E0XZZ Delivery of Products of Conception, External Approach (ICD-10-PCS; principal; 2018-05-20)
PROC: 0HQ9XZZ Repair Perineum Skin, External Approach (ICD-10-PCS; 2018-05-20)
DX: O42.02 Full-term premature rupture of membranes, onset of labor within 24 hours of rupture (principal); O75.2 Pyrexia during labor, not elsewhere classified; O70.0 First degree perineal laceration during delivery; O99.824 Streptococcus B carrier state complicating childbirth; O69.81X0 Labor and delivery complicated by cord around neck, without compression, not applicable or unspecified; Z3A.39 39 weeks gestation of pregnancy; Z37.0 Single live birth; Z87.59 Personal history of other complications of pregnancy, childbirth and the puerperium
CPT/HCPCS: 36415; 85007; 85025; 85027; 86850; 86900; 86901; 99212